=== PATIENT | female | born 1985 | race Caucasian/White ===

== ENCOUNTER → 2017-01-13 | Outpatient (CLI) | payer BC ==
[~2017-01-13] MED LIST: METHOTREXATE2.5 MG PO; PROMETHAZINE D118 ML PO; ZOLOFT100 MG PO
--- NOTE | ~2017-01-13 | US98 ---
[facility] A Service of [facility] & [facility] RADIOLOGY TEXT RESULTS PATIENT: BRITTANY NEGRETE LOCATION: [facility] : 83 UNIT #: [id number] AGE: [address]: Leopoldo Kilgore MD SEX: F ORDER DR: [id number] [address] [address] [id number] MR#: [id number] Acc #: [id number] NAME: BRITTANY NEGRETE : 1985 SEX: F STUDY DATE/TIME: 01/13/2017 9:21 UNIT: SG ROOM: STUDY DESCRIPTION: US Pelvic Non-OB Complete Attending Physician: Leopoldo Kilgore M.D. Referring Physician: Leopoldo Kilgore M.D. Ordering Physician: Leopoldo Kilgore M.D. Primary Care Physician: Leopoldo Kilgore M.D. MEDICAL IMAGING REPORT This report is preliminary unless electronic signature is present. EXAM Transabdominal and transvaginal pelvic ultrasound, 01/13/2017 HISTORY Dysfunctional uterine bleeding for 2 years off and on with right lower quadrant abdominal and pelvic tenderness for 2 years. FINDINGS Transabdominal and transvaginal pelvic ultrasound was performed. Endovaginal ultrasound was performed for attempted better visualization of the adnexal structures. The bladder is normal in appearance. Uterus measures 3.6 cm transverse x 7.5 cm craniocaudal x 4.8 cm AP. Endometrial stripe measures 4 mm. The right ovary measured 2.9 cm x 1.6 cm x 1.4 cm while the left ovary measured 2 cm x 3.1 cm x 2.4 cm. Small follicles were seen on both ovaries. Color flow Doppler images show normal blood flow to both ovaries. There is no adnexal mass. Minimal free fluid is seen in the pelvis. IMPRESSION Negative pelvic ultrasound. Dictated by... Aditya Mcclain M.D. THIS IS AN ELECTRONICALLY VERIFIED REPORT Aditya Mclcain M.D. at 01/15/2017 9:04 AM BHARATI/tamiko TD: 01/14/2017 03:26 JOB #: [id number] [facility] A Service of [facility] & [facility] RADIOLOGY TEXT RESULTS PATIENT: BRITTANY NEGRETE [id number] [birth year] UNIT #: [id number] AGE: [address]: Leopoldo Kilgore MD SEX: F ORDER DR: MEDICAL IMAGING REPORT
== END | disposition home or self-care (01) ==
LOC: SGUS 08:38
DX: N93.8 Other specified abnormal uterine and vaginal bleeding (principal); R10.813 Right lower quadrant abdominal tenderness
CPT/HCPCS: 76830; 76856